=== PATIENT | female | born 2000 | race Caucasian/White ===

== ENCOUNTER 2022-11-11 12:43 | Emergency (ER) | payer OTHER, SELFPAY ==
[2022-11-11 13:02] VITALS: BP 100/68; PULSE 73; RESP 16; TEMP 36.9; O2SAT 100; BMI 20.8
--- NOTE | 2022-11-11 13:39 | CRLHL7_ITS ---
For Patients: As a result of the Century Cures Act, medical imaging exams and procedure reports are released immediately into your electronic medical record. You may view this report before your referring provider. If you have questions, please contact your health care provider. INDICATION: IUD in place. COMPARISON: None. TECHNIQUE: Grayscale, color Doppler and spectral images of the pelvis obtained transabdominally transvaginally. FINDINGS: The uterus measures 7.6 x 3.1 x 3.7 cm. No uterine mass. There is an IUD within the endometrial canal. The IUD appears properly positioned. The right ovary measures 3.9 x 2.5 x 2.9 cm. No mass. Normal blood flow. The left ovary measures 3.8 x 2.8 x 2.5 cm. No mass. Normal blood flow. Trace free fluid in the pelvis is likely physiologic. IMPRESSION: No acute abnormality. Normal position of the IUD. Dictated by Honorio Baron MD @ 11/11/2022 2:43:43 PM (Electronically Signed)
--- NOTE | 2022-11-11 13:52 | ED.ABDPAIN ---
HPI - Abdominal Pain General Date Seen: 11/11/22 Chief Complaint: Abdominal Pain Stated Complaint: shooting pain in lower abdomen Time Seen by Provider: 11/11/22 12:47 Source: patient and family Mode of arrival: ambulatory Limitations: no limitations History of Present Illness HPI narrative: Patient is a 22-year-old female presents with her significant other with a history of abdominal pain periumbilical for the last 3-4 days it comes and goes, there is definitely times and she has no pain, but when it is there it causes her to draw her legs up. Or double her over. She denies any fevers chills or sweats she has been no vaginal discharge, no dysuria frequency, no nausea vomiting appetites been decreased, but she is still eating. She has never before had this before, but has noticed the last couple days that her breasts bilaterally are sore. She has a history of an IUD and does not think she is . No previous history of abdominal surgeries or any surgery she is on no chronic medications and has used 400 mg ibuprofen twice daily for the discomfort. No past history of constipation. She denies feeling sick, other than what is going on with her pain, she denies any fevers chills or sweats chest discomfort, coughing wheezing sore throat or other issues. Related Data Home Medications Medication Instructions Recorded Confirmed IUD 11/11/22 Allergies Allergy/AdvReac Type Severity Reaction Status Date / Time No Known Drug Allergies Allergy Verified 11/11/22 13:10 Review of Systems Status of ROS Reports: 10 or more systems reviewed and unremarkable except as noted in History and below PFSH PFS Social History Smoking Status: Never smoker Do you use any of these nicotine containing products: None Second hand tobacco smoke exposure: No How often do you have a drink containing alcohol: monthly or less How many standard drinks containing alcohol do you have on a typical day: 1 or 2 How often do you have six or more drinks on one occasion: Never AUDIT-C Alcohol total score: 1 Non-prescribed substance use: denies use service: No Exam Narrative: Exam Narrative: Patient is seen in room 7 her significant other is present, her vital signs are reviewed and normal, her pupils are equal round reactive to light, there is no scleral icterus redness, TMs bilaterally are normal, oropharynx is normal, chest is good air entry bilaterally with no wheezing crackles noted, heart sounds are normal. Skin reveals no petechiae rashes she has a scaphoid abdomen, there is no tenderness to palpate patient common septic deep in the periumbilical region. Bowel sounds are normal, no organomegaly, no CVA tenderness. She moves all extremities independently and well. Const: Vital Signs, click to edit/add: Vital Signs - 24 hr 11/11/22 13:02 11/11/22 15:22 Temperature 98.5 F Pulse Rate [Left P ulse Oximeter] 73 52 L Respiratory Rate 16 14 Blood Pressure [Le ft Upper Arm] 100/68 96/57 L Pulse Oximetry 100 100 Oxygen Delivery Me thod Room Air Room Air Documenting provider has reviewed patient's vital signs: yes Course Course Hospital Course: Discussed with patient, her ultrasound is negative, her laboratory tests is reassuring, did she want to proceed with further imaging such as a CT scan to rule out appendicitis, after this discussion the risks benefits and side effects she would like to. Reevaluation(s) Reevaluation #1: Patient was pain-free, I went over her CT scan results with her which showed no acute abnormality, I do think this is from bowel spasm which may be some mild constipation or maybe some from some viral illness, increasing her fluid intake, along with some Tylenol 1 g p.o. t.i.d. and then returning here if ongoing signs and symptoms would be appropriate she was comfortable with this plan. Time: 17:02 Vital Signs Vital signs: Initial Vital Signs Temperature 98.5 F 11/11/22 13:02 Temperature Source Temporal Artery Scan 11/11/22 13:02 Pulse Rate 73 11/11/22 13:02 Pulse Rhythm Regular 11/11/22 13:02 Pulse Strength 3+ Normal 11/11/22 13:02 Respiratory Rate 16 11/11/22 13:02 Blood Pressure 100/68 11/11/22 13:02 Blood Pressure Mean 78 11/11/22 13:02 Blood Pressure Position Sitting 11/11/22 13:02 Pulse Oximetry 100 11/11/22 13:02 Oxygen Delivery Method Room Air 11/11/22 13:02 Vital Signs Temperature 98.5 F 11/11/22 13:02 Pulse Rate 73 11/11/22 13:02 Respiratory Rate 16 11/11/22 13:02 Blood Pressure 100/68 11/11/22 13:02 Pulse Oximetry 100 11/11/22 13:02 Oxygen Delivery Method Room Air 11/11/22 13:02 Temperature 98.5 F 11/11/22 13:02 Pulse Rate 52 L 11/11/22 15:22 Respiratory Rate 14 11/11/22 15:22 Blood Pressure 96/57 L 11/11/22 15:22 Pulse Oximetry 100 11/11/22 15:22 Oxygen Delivery Method Room Air 11/11/22 15:22 MDM - Abdominal Pain MDM Narrative Medical decision making narrative: During the evaluation of this patient I considered multiple differential diagnosis including life-threatening differentials which are appendicitis, aortic aneurysm, mesenteric ischemia, bowel perforation, ectopic , volvulus and bowel obstruction, other differential diagnosis include but are not limited to inflammatory bowel disease, cholecystitis, pancreatitis, hepatitis, gastritis, GERD, diverticulitis, peptic ulcer disease, pyelonephritis/UTI, renal colic/stone, pelvic inflammatory disease, cervicitis, endometritis, intrauterine , dysfunctional uterine bleeding, ovarian cyst/torsion, spontaneous as well as other etiologies Lab Data Labs: Lab Results 11/11/22 11/11/22 Range/Units 14:18 15:12 WBC 5.55 (4.50-11.00) K/uL RBC 4.59 (4.00-5.20) m/uL Hgb 13.5 (12.0-16.0) gm/dL Hct 39.8 (33.0-51.0) % MCV 87 (80-100) fL MCH 29 (26-34) pg MCHC 34 (32-36) gm/dL RDW Coeff of Thee 12.0 (11.5-15.5) % Plt Count 276 (140-440) K/uL Neut % (Auto) 33.7 L (42.0-72.0) % Lymph % (Auto) 54.6 H (20-44) % [place] % (Auto) 8.1 (0.0-11.0) % Eos % (Auto) 2.7 (0.0-7.0) % Baso % (Auto) 0.9 (0.0-3.0) % Neut # (Auto) 1.90 (1.7-7.0) K/uL Lymph # (Auto) 3.00 H (0.90-2.90) K/uL [place] # (Auto) 0.40 (0.00-0.90) K/UL Eos # (Auto) 0.15 (0.00-0.50) K/uL Baso # (Auto) 0.05 (0.00-0.30) K/uL Sodium 139 (135-149) mmol/L Potassium 3.8 (3.6-5.1) mmol/L Chloride 106 (96-114) mmol/L Carbon Dioxide 26 (20-32) mmol/L BUN 14 (5-24) mg/dL Creatinine 0.7 (0.5-1.5) mg/dL Estimated Creat Clear 128.67 Estimated GFR 124 ml/min Glucose 89 (60-115) mg/dL Calcium 9.1 (8.4-10.6) mg/dL C-Reactive Protein < 0.5 L (0.5-1.0) mg/dL HCG, Qual Negative (Negative) Urine Color Yellow (Yellow) Urine Appearance Clear (Clear) Urine pH 7.0 (5.0-8.5) Ur Specific [place] 1.015 (1.000-1.030) Urine Protein Negative (Negative) Urine Glucose (UA) Negative (Negative) Urine Ketones Negative (Negative) Urine Blood Trace-intact A (Negative) Urine Nitrite Negative (Negative) Urine Bilirubin Negative (Negative) Urine Urobilinogen 0.2 (0.2-1.0) Ur Leukocyte Esterase Negative (Negative) Urine RBC 0-2 (0-2) Urine WBC 0-2 (0-5) Ur Squamous Epith Cells None (None-Few) Urine Bacteria None (None) Discharge Plan Discharge Clinical Impression: Abdominal pain Patient Disposition: Home w/ Parent or Adult Condition: Stable Instructions: Abdominal Pain (ED) Additional Instructions: Home rest use of lots of fluids, Tylenol for the discomfort, 1 g p.o. t.i.d., if her still having discomfort to more than probably I would use MiraLax 1 cap full with 20 oz of water twice a day to you get good returns, fevers chills nausea vomiting or worsening pain then should come back and be reseen. Activity Level: No Restrictions Discharge Diet: Regular Prescriptions: No Action IUD Follow Up/Referrals: Provider,Not a Local [Primary Care Provider] - Stand Alone Forms: MyHealth Info Instructions
[2022-11-11] MEDS: 0.9 % SODIUM CHLORIDE 1000 ml 1,000 ML IV ×2 (14:25→15:24)
[2022-11-11] MEDS: ONDANSETRON 2 MG/ML inj 4 MG IVP (14:25)
[2022-11-11] MEDS: KETOROLAC 30 MG/ML inj IVP (14:25)
[2022-11-11 14:28] LABS: Basophils Absolute Auto 0.05 K/uL (0.00-0.30); Basophils Percent Auto 0.9 % (0.0-3.0); Eosinophils Absolute Auto 0.15 K/uL (0.00-0.50); Eosinophils Percent Auto 2.7 % (0.0-7.0); Hematocrit 39.8 % (33.0-51.0); Hemoglobin* 13.5 gm/dL (12.0-16.0); Lymphocytes Percent Auto 54.6 % (20-44); Mean Corpuscular HGB Conc 34 gm/dL (32-36); Mean Corpuscular Hemoglobin 29 pg (26-34); Mean Corpuscular Volume 87 fL (80-100); Monocytes Percent Auto 8.1 % (0.0-11.0); Neutrophils Percent Auto 33.7 % (42.0-72.0); Platelet Count* 276 K/uL (140-440); Red Blood Count 4.59 m/uL (4.00-5.20); White Blood Count* 5.55 K/uL (4.50-11.00)
[2022-11-11 14:30] LABS: Slide Review Reflex No
[2022-11-11 14:40] LABS: Chloride* 106 mmol/L (96-114); Sodium* 139 mmol/L (135-149)
[2022-11-11 14:41] LABS: Potassium* 3.8 mmol/L (3.6-5.1)
[2022-11-11 14:43] LABS: Creatinine* 0.7 mg/dL (0.5-1.5); Est. Creatinine Clearance* 128.67; Estimated Glomerular Filt Rate 124 ml/min
[2022-11-11 14:44] LABS: Blood Urea Nitrogen* 14 mg/dL (5-24); Calcium* 9.1 mg/dL (8.4-10.6); Carbon Dioxide* 26 mmol/L (20-32); Glucose* 89 mg/dL (60-115)
[2022-11-11 14:49] LABS: C Reactive Protein* < 0.5 mg/dL (0.5-1.0)
[2022-11-11 15:20] LABS: Appearance Urine Clear (Clear); Bilirubin Urine Negative (Negative); Blood Urine Trace-intact (Negative); Color Urine Yellow (Yellow); Glucose Urine Negative (Negative); Ketones Urine Negative (Negative); Leukocyte Esterase Urine Negative (Negative); Nitrite Urine Negative (Negative); Protein Urine Negative (Negative); Specific Gravity Urine 1.015 (1.000-1.030); Urobilinogen Urine 0.2 (0.2-1.0)
[2022-11-11 15:21] LABS: HCG Qualitative* Negative (Negative)
[2022-11-11 15:22] VITALS: BP 96/57; PULSE 52; RESP 14; O2SAT 100
[2022-11-11 15:32] LABS: RBC Urine 0-2 (0-2); WBC Urine 0-2 (0-5)
--- NOTE | 2022-11-11 15:42 | CRLHL7_ITS ---
For Patients: As a result of the Century Cures Act, medical imaging exams and procedure reports are released immediately into your electronic medical record. You may view this report before your referring provider. If you have questions, please contact your health care provider. HISTORY: Abdominal pain. TECHNIQUE: Intravenous contrast enhanced CT of the abdomen and pelvis. 71 mL Isovue-370 intravenous contrast administered. COMPARISON: Ultrasound 11/11/2022. FINDINGS: There are a few sub cm low-density hepatic lesions which are too small to characterize. No biliary ductal dilatation. Gallbladder does not appear excessively distended. Spleen size within normal limits. Adrenal glands normal. No focal pancreatic abnormality. Symmetric nephrograms. No renal mass or hydronephrosis. No obstructive calculus. Urinary bladder nondistended. - There is an IUD within the uterus. A small amount of pelvic free fluid is present. No localized collection. - No small bowel obstruction. The appendix is normal. No diverticulitis or colitis. - No abdominal aortic aneurysm. No adenopathy. - No infiltrate within the lung bases nor pleural effusion. - No acute bony abnormality. IMPRESSION: 1. The appendix is normal. 2. Small amount of pelvic free fluid. 3. IUD appears appropriately positioned. Dictated by Sanjay Vega MD @ 11/11/2022 4:30:54 PM Please note that all CT scans at this facility use dose modulation, iterative reconstruction, and/or weight-based dosing when appropriate to reduce radiation dose to as low as reasonably achievable. Dictated by: Sanjay Vega MD @ 11/11/2022 16:31:01 (Electronically Signed)
== END 2022-11-11 17:24 | disposition home or self-care (01) ==
PROVIDERS: Emergency Provider Family Medicine
DX: R10.30 Lower abdominal pain, unspecified (principal)
CPT/HCPCS: 36415; 74177; 76830; 76856; 80048; 81001; 84703; 85025; 86140; 93976; 96374; 96375; 99284; J1885; J2405; J7030; Q9967